=== PATIENT | male | born 1965 | race Caucasian/White ===

== ENCOUNTER 2016-10-31 02:52 | Emergency (ER) | payer OTHER ==
[~2016-10-31] VITALS: Ht 177.8 cm; Wt 97.7 kg
[~2016-10-31 02:52] MED LIST: ANUSOL HC,ANUCO25 MG PR; ASPIR 8181 M1 PO; ASPIR-LOW81 MG PO; CELEXA20 MG PO; CEPHALEXIN500 MG PO; CLINDAMYCIN HC300 MG PO; CRESTOR10 MG PO; DILAUDID2 MG PO; LOTENSIN10 MG PO; LOVENOX100 MG/1 M SC; LYRICA100 MG PO; MOBIC7.5 MG PO; OXYCODONE HCL10 MG PO; PRILOSEC OTC20 MG PO; RANITIDINE HCL150 M1 PO; VALIUM5 MG PO; WARFARIN SODIUM10 MG PO; ZOFRAN4 MG PO
[2016-10-31] MEDS ORDERED: OXAYDO5 MG PO (03:32)
[2016-10-31 03:41] VITALS: BP 138/88
== END 2016-10-31 03:42 | disposition home or self-care (01) ==
LOC: EME 02:52
DX: G89.18 Other acute postprocedural pain (principal); M25.511 Pain in right shoulder; Z98.890 Other specified postprocedural states; I10 Essential (primary) hypertension; E78.5 Hyperlipidemia, unspecified; Z87.891 Personal history of nicotine dependence; Z79.82 Long term (current) use of aspirin
CPT/HCPCS: 99281; 99283